=== PATIENT | female | born 1975 | race Caucasian/White ===

== ENCOUNTER 2018-01-02 13:05 | Emergency (ER) | payer OTHER ==
[~2018-01-02] VITALS: Ht 154.9 cm; Wt 88.9 kg
[2018-01-02 13:14] VITALS: Ht 154.9 cm; Wt 88.9 kg
--- NOTE | 2018-01-02 13:50 | EMERGENCY ROOM VISIT NOTE ---
History Report prepared by Gabriella: Jim Kaplan Under the Supervision of: Dr. Armando Leroy M.D. First contact with patient: 13:32 Chief Complaint: MENTAL HEALTH EVALUATION Stated Complaint: from [facility] eval, Cocaine abuse, forearm abcess History of Present Illness The patient is a 42 year old female who presents to the Emergency Room with complaints of feeling hopeless for the past month and a half. She is feeling withdrawal symptoms such as diaphoresis and chills. She states she has relapsed for the past two weeks and her drug of choice is crack cocaine. The last time she used and injected was last night. She states she is experiencing recent stressors in life such as new living arrangements and dealing with her sons that occurred in 2016 causing her distress and making her sleep all day. She recently went to the [facility] because she felt she needed her bipolar medications adjusted due to them not really working. The [facility] originally sent her here for an abscess and high blood pressure. The patient states she popped the abscess last night a clear pus came out. The patient denies any fevers. Source of History: patient Onset: Month and a half ago Position: other (Generalized) Quality: other (Substnace Abuse) Associated Symptoms: + chills, + diaphoresis, + fatigue, No fevers Review of Systems See HPI for pertinent positives and negatives. A total of ten systems were reviewed and were otherwise negative. Past Medical & Surgical Medical Problems: (1) Substance abuse Family History Patient reports no known family medical history. Social History Smoking Status: Current Every Day Smoker Drug Use: cocaine Current/Historical Medications Scheduled Buprenorphine Hcl (Subutex), 8 MG SL TID Cephalexin Monohydrate (Keflex), 500 MG PO QID Chlorpromazine Hcl (Thorazine), 25 MG PO QAM Chlorpromazine Hcl (Thorazine), 25 MG PO DAILY Chlorpromazine Hcl (Thorazine), 50 MG PO QPM Doxepin Hcl (Doxepin), 150 MG PO HS Gabapentin (Neurontin), 800 MG PO TID Levothyroxine Sodium (Levothyroxine Sodium), 88 MCG PO DAILY Prazosin Hcl (Minipress), 1 CAP PO QPM Saccharomyces Boulardii (Florastor), 1 CAP PO BID Sulfamethoxazole-Trimethoprim (Bactrim Ds 800MG/160MG), 2 TAB PO BID Allergies Coded Allergies: No Known Allergies (Unverified , 01/02/18) Physical Exam Vital Signs Date Time Temp Pulse Resp B/P (MAP) Pulse Ox O2 Delivery O2 Flow Rate FiO2 01/02/18 18:50 36.7 78 16 116/71 98 01/02/18 15:45 78 16 116/71 98 Room Air 01/02/18 13:14 36.7 129 18 130/105 99 Room Air Physical Exam GENERAL: Awake, alert, tearful and depressed appearing HENT: Normocephalic, atraumatic. Oropharynx unremarkable. Mucous membranes are dry. EYES: Normal conjunctiva. Sclera non-icteric. NECK: Supple. No nuchal rigidity. FROM. No JVD. RESPIRATORY: Clear to auscultation. CARDIAC: Regular rate, normal rhythm. Extremities warm and well perfused. Pulses equal. ABDOMEN: Soft, non-distended. No tenderness to palpation. No rebound or guarding. No masses. RECTAL: Deferred. MUSCULOSKELETAL: Chest examination reveals no tenderness. The back is symmetrical on inspection without obvious abnormality. There is no CVA tenderness to palpation. No joint edema. LOWER EXTREMITIES: Calves are equal size bilaterally and non-tender. No edema. No discoloration. NEURO: Normal sensorium. No sensory or motor deficits noted. SKIN: No rash or jaundice noted. 4 areas ranging 1-3cm of erythema, warmth, induration and fluctuance on b/l forearms, respectively. PSYCH: +SI, +hopelessness, +IVDA, Medical Decision & Procedures ER Provider Diagnostic Interpretation: Radiology results as stated below per my review and radiologist interpretation: L FOREARM 2 VIEWS ROUTINE CLINICAL HISTORY: Multiple abscesses. History of IV drug abuse. Evaluate for foreign body. COMPARISON: None. DISCUSSION: No fractures are visualized. No destructive lesions are evident. No radiopaque foreign bodies are visualized. IMPRESSION: 1. No evidence of fracture 2. No radiopaque foreign bodies are visualized. Electronically signed by: Curtis Corley M.D. 01/02/2018 3:42 PM Dictated Date/Time: 01/02/2018 3:41 PM R FOREARM 2 VIEWS ROUTINE CLINICAL HISTORY: Multiple abscesses. History of IV drug abuse. Evaluate for foreign body. COMPARISON: None. DISCUSSION: No fractures are visualized. No destructive lesions are evident. No radiopaque foreign bodies are visualized. IMPRESSION: 1. No evidence of fracture. No destructive lesions are visualized. 2. No radiopaque foreign bodies are visualized. Electronically signed by: Curtis Corley M.D. 01/02/2018 3:43 PM Dictated Date/Time: 01/02/2018 3:42 PM Laboratory Results 01/02/18 14:04 Red Blood Count 5.14, Mean Corpuscular Volume 76.5, Mean Corpuscular Hemoglobin 24.7, Mean Corpuscular Hemoglobin Concent 32.3, Mean Platelet Volume 9.9, Neutrophils (%) (Auto) 69.6, Lymphocytes (%) (Auto) 19.3, Monocytes (%) (Auto) 9.6, Eosinophils (%) (Auto) 0.9, Basophils (%) (Auto) 0.2, Neutrophils # (Auto) 7.00, Lymphocytes # (Auto) 1.94, Monocytes # (Auto) 0.97, Eosinophils # (Auto) 0.09, Basophils # (Auto) 0.02 01/02/18 14:04 Test 01/02/18 13:25 01/02/18 14:02 01/02/18 14:04 Urine Color DK YELLOW Urine Appearance CLOUDY (CLEAR) Urine pH 5.5 (4.5-7.5) Urine Specific [place] 1.032 (1.000-1.030) Urine Protein TRACE (NEG) Urine Glucose (UA) NEG (NEG) Urine Ketones 1+ (NEG) Urine Occult Blood NEG (NEG) Urine Nitrite NEG (NEG) Urine Bilirubin NEG (NEG) Urine Urobilinogen NEG (NEG) Urine Leukocyte Esterase NEG (NEG) Urine WBC (Auto) 1-5 /hpf (0-5) Urine RBC (Auto) 0-4 /hpf (0-4) Urine Hyaline Casts (Auto) 1-5 /lpf (0-5) Urine Epithelial Cells (Auto) >30 /lpf (0-5) Urine Bacteria (Auto) 1+ (NEG) Urine Pathogenic Casts /lpf (0) Urine Test NEG (NEG) Urine Opiates Screen NEG (NEG) Urine Methadone, Qualitative NEG (NEG) Urine Barbiturates NEG (NEG) Urine Phencyclidine (PCP) Level NEG (NEG) Ur Amphetamine/Methamphetamine NEG (NEG) MDMA (Ecstasy) Screen NEG (NEG) Urine Benzodiazepines Screen POS (NEG) Urine Cocaine Metabolite POS (NEG) Urine Marijuana (THC) NEG (NEG) Bedside Glucose 137 mg/dl (70-90) White Blood Count 10.06 K/uL (4.8-10.8) Red Blood Count 5.14 M/uL (4.2-5.4) Hemoglobin 12.7 g/dL (12.0-16.0) Hematocrit 39.3 % (37-47) Mean Corpuscular Volume 76.5 fL (80-100) Mean Corpuscular Hemoglobin 24.7 pg (25-34) Mean Corpuscular Hemoglobin Concent 32.3 g/dl (32-36) Platelet Count 330 K/uL (130-400) Mean Platelet Volume 9.9 fL (7.4-10.4) Neutrophils (%) (Auto) 69.6 % Lymphocytes (%) (Auto) 19.3 % Monocytes (%) (Auto) 9.6 % Eosinophils (%) (Auto) 0.9 % Basophils (%) (Auto) 0.2 % Neutrophils # (Auto) 7.00 K/uL (1.4-6.5) Lymphocytes # (Auto) 1.94 K/uL (1.2-3.4) Monocytes # (Auto) 0.97 K/uL (0.11-0.59) Eosinophils # (Auto) 0.09 K/uL (0-0.5) Basophils # (Auto) 0.02 K/uL (0-0.2) RDW Standard Deviation 44.4 fL (36.4-46.3) RDW Coefficient of Variation 16.0 % (11.5-14.5) Immature Granulocyte % (Auto) 0.4 % Immature Granulocyte # (Auto) 0.04 K/uL (0.00-0.02) Anion Gap 10.0 mmol/L (3-11) Est Creatinine Clear Calc Drug Dose 88.4 ml/min Estimated GFR () 99.4 Estimated GFR (Non- 85.7 BUN/Creatinine Ratio 14.9 (10-20) Calcium Level 10.2 mg/dl (8.5-10.1) Total Bilirubin 0.2 mg/dl (0.2-1) Direct Bilirubin < 0.1 mg/dl (0-0.2) Aspartate Amino Transf (AST/SGOT) 9 U/L (15-37) Alanine Aminotransferase (ALT/SGPT) 13 U/L (12-78) Alkaline Phosphatase 110 U/L (45-117) Total Protein 8.7 gm/dl (6.4-8.2) Albumin 3.4 gm/dl (3.4-5.0) Globulin 5.3 gm/dl (2.5-4.0) Albumin/Globulin Ratio 0.6 (0.9-2) Thyroid Stimulating Hormone (TSH) 0.931 uIu/ml (0.300-4.500) Ethyl Alcohol mg/dL < 3.0 mg/dl (0-3) Laboratory results reviewed by me Medications Administered Medications (Trade) Dose Ordered Sig/Vin Route Start Time Stop Time Status Last Admin Dose Admin Lidocaine HCl (Buffered Lidocaine 1% Inj) 40 ml ONE STAT INFIL 01/02/18 16:17 01/02/18 16:22 DC 01/02/18 16:53 40 ML Diphtheria/ Pertussis/Tetanus Vacc (Adacel Inj) 0.5 ml ONCE ONCE IM. 01/02/18 16:30 01/02/18 16:31 DC 01/02/18 16:58 0.5 ML Cephalexin Monohydrate (Keflex Cap) 500 mg NOW STAT PO 01/02/18 16:17 01/02/18 16:22 DC 01/02/18 16:53 500 MG Trimethoprim/ Sulfamethoxazole (Septra Ds 800/ 160MG Tab) 2 tab NOW STAT PO 01/02/18 16:17 01/02/18 16:22 DC 01/02/18 16:54 2 TAB Pantoprazole Sodium (Protonix Tab) 40 mg NOW STAT PO 01/02/18 16:17 01/02/18 16:22 DC 01/02/18 16:53 40 MG Trimethoprim/ Sulfamethoxazole (Sulfameth/ Trimeth Ds 800/ 160MG Home Pack) 1 homepack UD STAT PO 01/02/18 18:02 01/02/18 18:08 DC 01/02/18 18:17 1 HOMEPACK Cephalexin Monohydrate (Keflex 500MG Home Pack) 1 homepack NOW STAT PO 01/02/18 18:02 01/02/18 18:08 DC 01/02/18 18:17 1 HOMEPACK Famotidine (Pepcid Tab) 20 mg NOW ONCE PO 01/02/18 18:15 01/02/18 18:16 DC 01/02/18 18:17 20 MG Miscellaneous Medication (Gi Cocktail) 24 ml NOW STAT PO 01/02/18 18:02 01/02/18 18:08 DC 01/02/18 18:17 24 ML Lidocaine HCl (Viscous Lidocaine 2% Soln) 20 ml STK-MED ONCE .ROUTE 01/02/18 18:11 01/02/18 18:12 DC 01/02/18 18:19 20 ML Al Hydroxide/Mg Hydroxide (Maalox Susp) 30 ml STK-MED ONCE .ROUTE 01/02/18 18:11 01/02/18 18:12 DC 01/02/18 18:19 30 ML ECG Per My Interpretation Indication: other (Substance abuse) Rate (beats per minute): 114 Rhythm: sinus tachycardia Findings: no acute ischemic change, other (Normal intervals, normal axis) ED Course 1334: The patient was evaluated in room A5. A complete history and physical exam was performed. 1500: I performed a bedside ultrasound on the patient. 1615: I marked the abscesses on the patient 1745: I reevaluated the patient. Discussed results and discharge instructions: She verbalized understanding and agreement. The patient is ready for discharge. Medical Decision I reviewed the patient's past medical history, medications, and the nursing notes as described above. Differential diagnosis: Etiologies such as mood disorder, infection, hypoglycemia, electrolyte abnormalities, cardiac sources, intracerebral event, toxicologic, neurologic, as well as others were entertained. The patient is a 42 y/o woman with a pmhx of IVDA and BPD on Thorazine who presents to the emergency department with worsening SI/depression for the past month in the setting of relapsing and using IV drugs for the past couple of weeks per HPI. Patient was seen at the [facility] but was sent to ED for medical clearance given concern for forearm abscesses. Patient denies f/c, cough, congestion, n/v, urinary sx. On arrival the patient is in NAD, AFVSS. +SI but denies plan. +hopelessness. 4 areas ranging 1-3cm of induration and fluctuance on b/l forearms, respectively. Bedside US demonstrates fluid collections suspicious for abscess/phlegmon. No FB on plain films. I&D performed per PAC procedure notes. Wound cx sent per [facility] request. EKG unremarkable with normal intervals. WBC wnl, Chemistry c/w mild dehydration but otherwise unremarkable. Plan to treat with Bactrim and Keflex for broader coverage given patient's h/o IVDA. Daily dressing changes/wound care with packing removal. Patient medically cleared. Accepted to [facility] for inpatient psychiatry. Patient willing for voluntary admission. 201 signed. Patient transferred directly to [facility]. Of note, patient with mild reflux sx for which she takes prilosec. Resolved sx after protonix, pepcid, GI cocktail. Medication Reconcilliation Current Medication List: was personally reviewed by me Blood Pressure Screening Patient's blood pressure: Normal blood pressure Impression Primary Impression: Suicidal ideation Additional Impressions: Abscess of forearm, left Abscess of forearm, right Scribe Attestation The scribe's documentation has been prepared under my direction and personally reviewed by me in its entirety. I confirm that the note above accurately reflects all work, treatment, procedures, and medical decision making performed by me. Departure Information Dispostion Home / Self-Care Prescriptions Saccharomyces Boulardii (Florastor) 250 Mg Cap 1 CAP PO BID for 10 Days, #20 CAP Prov: Armando Leroy M.D. 01/02/18 Sulfamethoxazole-Trimethoprim (Bactrim Ds 800MG/160MG) 1 Tab Tab 2 TAB PO BID for 8 Days, #32 TAB Prov: Armando Leroy M.D. 01/02/18 Cephalexin Monohydrate (KEFLEX) 500 Mg Cap 500 MG PO QID for 8 Days, #32 CAP Prov: Armando Leroy M.D. 01/02/18 Referrals No Doctor, Assigned (PCP) Patient Instructions Addiction Drug Abuse Tx, ED Abscess IandD, ED Drug Abuse General, [facility], Suicide Warning Signs Others Additional Instructions Please follow up with your providers at the [facility] tomorrow for re-evaluation. You were found to have multiple abscesses due to your drug use that were drained today. Otherwise, your exam and lab results did not show signs of an emergent condition at this time. Acetaminophen for pain and fevers as needed. Keflex and Bactrim as directed. Daily Sitz baths to promote drainage with daily dressing changes with non- adherent gauze and Kerlex wrap. Florastor, probiotic, to help prevent antibiotic associated diarrhea. Ensure hydration. Return to the emergency department for worsening symptoms as described in the accompanying instructions. Problem Qualifiers
[2018-01-02] MEDS ORDERED: GABA800T PO (14:03)
[2018-01-02] MEDS ORDERED: CHLO1TAB19 PO ×2 (14:03)
[2018-01-02] MEDS ORDERED: BUPR8SUB19 SL (14:03)
[2018-01-02] MEDS ORDERED: CHLO1TAB15 PO (14:03)
[2018-01-02] MEDS ORDERED: LEVO88TA3 PO (14:03)
[2018-01-02] MEDS ORDERED: DOXE150C PO (14:03)
[2018-01-02] MEDS ORDERED: PRAZ2CAP PO (14:03)
[2018-01-02 14:16] LABS: BASO % 0.2 %; BASO ABS # 0.02 K/uL (0-0.2); EOS % 0.9 %; EOS ABS # 0.09 K/uL (0-0.5); HEMATOCRIT 39.3 % (37-47); HEMOGLOBIN 12.7 g/dL (12.0-16.0); IG# 0.04 K/uL (0.00-0.02); LYMPH % 19.3 %; LYMPH ABS # 1.94 K/uL (1.2-3.4); MEAN CELL VOLUME 76.5 fL (80-100); MEAN CORPUSCULAR HEMOGLOBIN 24.7 pg (25-34); MEAN CORPUSCULAR HGB CONC 32.3 g/dl (32-36); MEAN PLATELET VOLUME 9.9 fL (7.4-10.4); MONO % 9.6 %; MONO ABS # 0.97 K/uL (0.11-0.59); NEUT % 69.6 %; PLATELET COUNT 330 K/uL (130-400); RED CELL DISTRIBUTION WIDTH SD 44.4 fL (36.4-46.3); WHITE BLOOD COUNT 10.06 K/uL (4.8-10.8)
[2018-01-02 14:47] LABS: ALBUMIN 3.4 gm/dl (3.4-5.0); ALKALINE PHOSPHATASE 110 U/L (45-117); ALT/SGPT 13 U/L (12-78); AST/SGOT 9 U/L (15-37); BLOOD UREA NITROGEN 13 mg/dl (7-18); CALCIUM 10.2 mg/dl (8.5-10.1); CARBON DIOXIDE 20 mmol/L (21-32); CREATININE 0.84 mg/dl (0.60-1.20); GLUCOSE 134 mg/dl (70-99); POTASSIUM 3.8 mmol/L (3.5-5.1); SODIUM 137 mmol/L (136-145); TOTAL PROTEIN 8.7 gm/dl (6.4-8.2)
--- NOTE | 2018-01-02 15:43 | DIAGNOSTIC IMAGING REPORT ---
L FOREARM 2 VIEWS ROUTINE CLINICAL HISTORY: Multiple abscesses. History of IV drug abuse. Evaluate for foreign body. COMPARISON: None. DISCUSSION: No fractures are visualized. No destructive lesions are evident. No radiopaque foreign bodies are visualized. IMPRESSION: 1. No evidence of fracture 2. No radiopaque foreign bodies are visualized. Electronically signed by: Curtis Corley M.D. 01/02/2018 3:42 PM Dictated Date/Time: 01/02/2018 3:41 PM
--- NOTE | 2018-01-02 15:44 | DIAGNOSTIC IMAGING REPORT ---
R FOREARM 2 VIEWS ROUTINE CLINICAL HISTORY: Multiple abscesses. History of IV drug abuse. Evaluate for foreign body. COMPARISON: None. DISCUSSION: No fractures are visualized. No destructive lesions are evident. No radiopaque foreign bodies are visualized. IMPRESSION: 1. No evidence of fracture. No destructive lesions are visualized. 2. No radiopaque foreign bodies are visualized. Electronically signed by: Curtis Corley M.D. 01/02/2018 3:43 PM Dictated Date/Time: 01/02/2018 3:42 PM
[2018-01-02] MEDS ORDERED: PANTOprazole SOD 40 MG TAB PO STA (16:17)
[2018-01-02] MEDS ORDERED: SULFAMETHOXAZOLE/TRIMETHOPRIM DS 800/160MG TAB PO STA (16:17)
[2018-01-02] MEDS ORDERED: LIDOCAINE 1% BUFFERED INJ 20 ML VIAL INFIL STA (16:17)
[2018-01-02] MEDS ORDERED: CEPHALEXIN MONOHYDRATE 250 MG CAP PO STA (16:17)
[2018-01-02] MEDS ORDERED: DIPHTHERIA/TETANUS/PERTUSSIS 0.5 ML SYR/VIAL IM. ONE (16:30)
[2018-01-02] MEDS ORDERED: CEPHALEXIN 500MG HOME PACK 1 EA BTL PO STA (18:02)
[2018-01-02] MEDS ORDERED: GI COCKTAIL PO STA (18:02)
[2018-01-02] MEDS ORDERED: SEPTRA DS HOME PACK 1 EA VIAL PO STA (18:02)
[2018-01-02] MEDS ORDERED: ALUMINUM/MAGNESIUM SUSP 30 ML UDC ONE (18:11)
[2018-01-02] MEDS ORDERED: LIDOCAINE HCL 2% VISC SOLN 20 ML UDC ONE (18:11)
[2018-01-02] MEDS ORDERED: SULF800T23 PO ×2 (18:11→18:12)
[2018-01-02] MEDS ORDERED: SACC250C3 PO ×2 (18:11→18:12)
[2018-01-02] MEDS ORDERED: CEPH500C2 PO ×2 (18:11→18:12)
--- NOTE | 2018-01-02 18:14 | EMERGENCY ROOM VISIT NOTE ---
ED Visit Note First contact with patient: 17:30 I was asked by Dr. Leroy to evaluate the patient for incision and drainage of multiple abscesses of the arms. Please see his documentation for further information regarding exam and disposition. PROCEDURE NOTE: Incision and drainage of 3 abscesses of the left forearm Verbal consent was obtained to perform the procedure. After saline and Betadine cleansing and approximately 5 mL of 1% buffered lidocaine anesthesia, the 3 abscesses of the left forearm were incised with a number 11 scalpel blade. A large amount of purulent and bloody discharge was released with more expressed by pressure. The abscess cavities were further probed with a needle dedicated intermodal truck driver and the deep pockets expressed. The abscess cavities were then copiously irrigated with sterile saline under pressure. The areas were then packed with bacitracin soaked packing. The area was cleaned with sterile saline and dressed with bacitracin and a bulky bandage. An Osman wrap was also applied to the area for compression of the wounds. The patient tolerated the procedure well with no known complications.
[2018-01-02] MEDS ORDERED: FAMOTIDINE 20 MG TAB PO ONE (18:15)
[2018-01-02 18:50] VITALS: BP 116/71; PULSE 78; TEMP 36.7; O2SAT 98
--- NOTE | 2018-01-02 20:57 | EMERGENCY ROOM VISIT NOTE ---
ED Visit Note I was asked by Dr. Leroy to evaluate the patient for incision and drainage of multiple abscesses of the arms. Please see his documentation for further information regarding exam and disposition. PROCEDURE NOTE: Incision and drainage of 3 abscesses of the right forearm Verbal consent was obtained to perform the procedure. After saline and Betadine cleansing and approximately 10 mL total of 1% buffered lidocaine anesthesia, the 3 abscesses of the right forearm were incised with a number 11 scalpel blade. A large amount of purulent and bloody discharge was released with more expressed by pressure. A swan was obtained, labeled, and sent to the lab for culture. The abscess cavities were further probed with a needle compactor driver and the deep pockets expressed. The abscess cavities were then copiously irrigated with sterile saline under pressure. The areas were then packed with plain packing. The area was cleaned with sterile saline and dressed with bacitracin and a bulky bandage. An Osman wrap was also applied to the area for compression of the wounds. The patient tolerated the procedure well with no known complications.
== END 2018-01-02 18:51 ==
LOC: EDBD 13:05 → C.EDA 13:09
DX: R45.851 Suicidal ideations (principal); L02.414 Cutaneous abscess of left upper limb; L02.413 Cutaneous abscess of right upper limb; F31.9 Bipolar disorder, unspecified; F17.200 Nicotine dependence, unspecified, uncomplicated; Z23 Encounter for immunization; Z79.899 Other long term (current) drug therapy